=== PATIENT | female | born 2005 | race African-American/Black ===

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

== ENCOUNTER 2024-01-22 13:09 | Emergency (ER) | payer SELFPAY ==
--- OUTSIDE RECORDS SUMMARY | 2024-01-22 13:12 | XMS REPORT | Continuity of Care Document ---
Author Name Unknown Address [address] [place] [address] [facility] thconnect Address [address] [place] [address] Care Team Providers Care Creative Writing English Professor Name Role Phone Unavailable Unavailable Unavailable Encounters Start Date/Time End Date/Time Encounter Type Admission Type Attending [facility] Facility Care Department Encounter ID Source 2023-01-12 16:24:44 2023-01-12 16:24:44 Outpatient [facility] [id number] Emerson Marc 2022-12-16 15:50:12 2022-12-16 15:50:12 Outpatient [facility] [id number] Emerson Marc 2022-08-26 11:26:49 2022-08-26 11:26:49 Outpatient [facility] [id number] Emerson Marc 2022-08-23 14:48:02 2022-08-23 14:48:02 Outpatient [facility] [id number] Emerson Marc 2022-08-20 17:51:00 2022-08-20 17:51:00 Outpatient [facility] [id number] Emerson Marc 2022-07-26 16:16:28 2022-07-26 16:16:28 Outpatient [facility] [id number] Emerson Marc Results Test Description Test Time Test Comments Results Result Co mments Source CHLAMYDIA, NAAT, [id number] 17:41:24* Test Item Value Reference Range Interpretation Comme nts CHLAMYDIA, NAAT, URINE (test code = 66793) NEGATIVE NEGATIVE Testing is perfo rmed with [employer] ERICK 6800/8800 systems usingreal-time polymerase chain reaction (PCR) method. A negative result does not exclude low level infection, specimensampling error, or collection error. GONORRHEA, NAAT, [id number] 17:41:24* Test Item Value Reference Range Interpretation Comme nts GONORRHEA, NAAT, URINE (test code = 52121) NEGATIVE NEGATIVE Testing is perfo rmed with [employer] ERICK 6800/8800 systems usingreal-time polymerase chain reaction (PCR) method. A negative result does not exclude low level infection, specimensampling error, or collection error. HERPES SIMPLEX AB, [id number] 14:51:22* Test Item Value Reference Range Interpretation Comme nts HERPES SIMPLEX AB, IgM (test code = 36585) 0.86 INDEX SEE BELOW INTERPRETATION U NITS RANGE ----- ----- NEGATIVE INDEX <=0.89 EQUIVOCAL INDEX 0.90-1.09 POSITIVE INDEX >=1.10 CULTURE, [id number] 09:25:55SPECIMEN NUMBER: [id number] CULTURE, URINE SPECIMEN NUMBER: [id number] SPECIMEN COMMENT: URINE SOURCE: URINE REPORT STATUS: FINAL FINAL REPORT: 12/19/2022 10-50,000 CFU/ML UROGENITAL ALEXANDER PRESENT NO CO MMON PATHOGENS UNLESS OTHERWISE INDICATED, ALL TESTING PERFORMED AT [facility] [address] [place] [address] STERILIZER MACHINE OPERATOR: BEATRICE NI M.D. CLIA NUMBER [id number] [place]. [id number] REFLEX TO T. PALLIDUM - [id number] 06:25:09* Test Item Value Reference Range Interpretation Comme nts RPR (test code = 25548) NON-REACTIVE NON-REACTIVE RPR TITER (test code = 3500) NOT INDIC. TITER NOT INDIC. HERPES SIMPLEX 1/2 AB, IgG [id number] 04:13:55* Test Item Value Reference Range Interpretation Comme nts HERPES SIMPLEX 1 AB, IgG (test code = 89408) 0.032 INDEX SEE BELOW INTERPRETATION U NITS RANGE ----- ----- NON-REACTIVE INDEX <1.000 REACTIVE INDEX >=1.000 HERPES SIMPLEX 2 AB, IgG (test code = 98544) 0.084 INDEX SEE BELOW INTERPRETATION U NITS RANGE ----- ----- NON-REACTIVE INDEX <1.000 REACTIVE INDEX >=1.000 HIV 1/2 4TH GEN, RFLX [id number] 04:13:55* Test Item Value Reference Range Interpretation Comme nts HIV 1/2 4TH GEN, RFLX CONF ( test code = 3514) NON-REACTIVE NON-REACTIVE LIPID [id number] 03:28:16* Test Item Value Reference Range Interpretation [...] SPECIMENS. FOR MOREINFORMATION, SEE CLIENT ANNOUNCEMENT AT [email or web address] /[email or web address] RISK RATIO LDL/HDL (test code = 2238) 2.49 RATIO <3.22 UNLESS OTHERW ISE INDICATED, ALL TESTING PERFORMED AT [facility] [address] [place], [place] [address] STERILIZER MACHINE OPERATOR: BEATRICE NI M.D. CLIA NUMBER [id number] [place]. [id number] CULTURE, [id number] 11:46:45SPECIMEN NUMBER: [id number] CULTURE, THROAT SPECIMEN NUMBER: [id number] SOURCE: THROAT REPORT STATUS:FINAL FINAL REPORT: 08/28/2022 NORMAL RESPIRATORY ALEXANDER [facility] has important pathology staff change s effective 07/21/2022. New pathology staff will provide uninterrupted, excellent patient care and clinical consultation. See URL: [email or web address]. UNLESS OTHERWISE INDICATED, ALL TESTING PERFORMED AT [facility] [address] [place] [address] LABORATORYDIRECTOR: BEATRICE NI M.D. CLIA NUMBER [id number] [place]. [id number] W/AUTO DIFF WITH [id number] 04:30:36* Test Item Value Reference Range Interpretation [...] 0.00-0.10 ABS NUCLEATED RBCS (test code = 74043) 0.00 K/UL 0.00-0.11 [facility] has important pathology staff changes effective 07/21/2022. New pathology staff will provide uninterrupted, excellent patient care and clinical consultation. See URL: [email or web address]. UNLESS OTHERWISE INDICATED, ALL TESTING PERFORMED AT [facility] [address] [place] [address] STERILIZER MACHINE OPERATOR: BEATRICE NI M.D. [place] NUMBER [id number] [facility] [place]. [id number] LIPID [id number] 04:12:50* Test Item Value Reference Range Interpretation [...] SPECIMENS. FOR MOREINFORMATION, SEE CLIENT ANNOUNCEMENT AT [email or web address] /[email or web address] RISK RATIO LDL/HDL (test code = 2238) 2.00 RATIO <3.22 COMPREHENSIVE METABOLIC [id number] 04:12:50* Test Item Value Reference Range Interpretation Comme nts GLUCOSE (test code = 2217) 85 MG/DL 70-99 BUN (test code = 2208) 6 MG/DL 6-20 CREATININE (test code = 2214) 0.83 MG/DL 0.50-1.10 eGFR (2020 CKD-EPI) (test code = 54955) NO CALC ML/MIN/1.73 >60 NOTE: 2020 CKD-EPI [...] (test code = 2218) 11 U/L 5-40 [facility] has impo rtant pathology staff changes effective 07/21/2022. New pathology staff will provide uninterrupted, excellent patient care and clinical consultation. See URL: [email or web address]. UNLESS OTHERWISE INDICATED, ALL TESTING PERFORMED AT [facility] [address] [place] [address] STERILIZER MACHINE OPERATOR: BEATRICE NI M.D. CLIA NUMBER [id number] [facility] [place]. [id number] HEMOGLOBIN [id number] 03:51:24* Test Item Value Reference Range Interpretation Comme nts HEMOGLOBIN A1c (test code = 67901) 5.5 % 4.2-5.6 CBC W/AUTO DIFF WITH [id number] 03:12:24* Test Item Value Reference Range Interpretation [...] = 1065) 0.0 /100 WBC'S See_Comment [Automated [employer]] The system which generated this result [...] 0.00-0.10 ABS NUCLEATED RBCS (test code = 08086) 0.00 K/UL 0.00-0.11
--- NOTE | 2024-01-22 13:54 | RAD REPORT ---
EXAM DESCRIPTION: RAD - Ankle Left 3 View - 01/22/2024 1:41 pm CLINICAL HISTORY: PAIN COMPARISON: No comparisons FINDINGS: No acute fracture or dislocation is seen. Small calcaneal spurs.
--- NOTE | 2024-01-22 13:59 | ER ---
Nurse's Notes [facility] Name: Marley Tatum Age: 18 yrs Sex: Female : 2005 Arrival Date: 01/22/2024 Time: 13:09 Bed 12 Private MD: Diagnosis: Sprain of unspecified ligament of left ankle, initial encounter Presentation: 01/21 13:25 Chief complaint: Patient states: she was working out last week, when she hurt her left ap3 ankle. patient complains of continued pain that is not improving. patient states her pain is currently an 8/10 on the pain scale at this time. Coronavirus screen: At this time, the client does not indicate any symptoms associated with coronavirus-19. Ebola Screen: No symptoms or risks identified at this time. Initial Sepsis Screen: Does the patient meet any 2 criteria? No. Patient's initial sepsis screen is negative. Does the patient have a suspected source of infection? No. Patient's initial sepsis screen is negative. Risk Assessment: Do you want to hurt yourself or someone else? Patient reports no desire to harm self or others. Onset of symptoms was January 15, 2024. 13:25 Method Of Arrival: Ambulatory ap3 13:25 Acuity: REINA 4 ap3 Triage Assessment: 13:28 General: Appears in no apparent distress. Behavior is calm, cooperative, appropriate ap3 for age. Pain: Complains of pain in dorsum of left foot Pain currently is 8 out of 10 on a pain scale. Neuro: Level of Consciousness is awake, alert, obeys commands, Oriented to person, place, time, situation, Appropriate for age. Cardiovascular: Patient's skin is warm and dry. Respiratory: Airway is patent Respiratory effort is even, unlabored, Respiratory pattern is regular, symmetrical. 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 - Infectious Disease History:: Denies. - Social history:: Smoking status: Patient denies any tobacco usage or history of. Screenin:29 [facility] ED Fall Risk Assessment (Adult) History of falling in the last 3 months, ap3 including since admission No falls in past 3 months (0 pts) Confusion or Disorientation No (0 pts) Intoxicated or Sedated No (0 pts) Impaired Gait No (0 pts) Mobility Assist Device Used No (0 pt) Altered Elimination No (0 pt) Score/Fall Risk Level 0 - 2 = Low Risk Oriented to surroundings, Maintained a safe environment, Educated pt \T\ family on fall prevention, incl call for assistance when getting out of bed, Assessed \T\ reinforced patient's understanding of fall precautions, Hourly rounding (assess needs \T\ fall precautionary measures) done, Used ambulatory aids as needed (educated on \T\ assisted with), Used gait belt as appropriate. Abuse screen: Denies threats or abuse. Nutritional screening: No deficits noted. Tuberculosis screening: No symptoms or risk factors identified. Assessment: 13:43 General: Appears in no apparent distress. Behavior is calm, cooperative. Pain: tl4 Complains of pain in left foot. Neuro: Level of Consciousness is awake, alert, obeys commands, Oriented to person, place, time, situation, Moves all extremities. Full function. Cardiovascular: Capillary refill < 3 seconds Patient's skin is warm and dry. Respiratory: Airway is patent Respiratory effort is even, unlabored, Respiratory pattern is regular, symmetrical, Breath sounds are clear bilaterally. GI: No signs and/or symptoms were reported involving the gastrointestinal system. : No signs and/or symptoms were reported regarding the genitourinary system. EENT: No signs and/or symptoms were reported regarding the EENT system. Derm: No signs and/or symptoms reported regarding the dermatologic system. Musculoskeletal: Reports pain in left foot. Vital Signs: 13:25 BP 136 / 95; Pulse 77; Resp 17; Temp 98.1; Pulse Ox 100% ; Weight 108.86 kg; Height 5 ap3 ft. 6 in. ; Pain 8/10; 13:44 BP 132 / 74; Pulse 60; Resp 18; Pulse Ox 100% on R/A; tl4 13:25 Body Mass Index 38.74 (108.86 kg, 167.64 cm) - Percentile 98.2 % ap3 13:25 Pain Scale: Adult ap3 ED Course: 13:12 Patient arrived in ED. im 13:17 Yani Vasquez PA-C is PHCP. sb4 13:17 Luma Albarran MD is Attending Physician. sb4 13:27 Triage completed. ap3 13:29 Arm band placed on right wrist. ap3 13:29 Patient has correct armband on for positive identification. Call light in reach. Side ap3 rails up X 1. Pulse ox on. NIBP on. 13:43 Ankle Left 3 View XRAY In Process Unspecified. EDMS 13:43 Foot Left 3 View In Process Unspecified. EDMS 13:43 Jhon Wright, RN is Primary Nurse. tl4 13:44 Provided Education on: call davis, ed process. tl4 13:44 No provider procedures requiring assistance completed. Patient did not have IV access tl4 during this emergency room visit. 14:06 Air stirrup applied to left ankle. tl4 Administered Medications: No medications were administered Medication: 13:44 VIS not applicable for this client. tl4 Outcome: 13:58 Discharge ordered by MD. sb4 14:06 Discharged to home ambulatory, tl4 14:06 Condition: stable 14:06 Discharge instructions given to patient, Instructed on discharge instructions, follow up and referral plans. medication usage, splint care Demonstrated understanding of instructions, follow-up care, medications, splint care, Prescriptions given X 1, 14:07 Patient left the ED. tl4 Signatures: Dispatcher [employer] Elisha Pope, RN RN [email or web address] Yani Vasquez PA-C PA-C sb4 Skye Randhawa Toni, RN RN tl4
--- NOTE | 2024-01-22 13:59 | EDPHYS ---
Physician Documentation [facility] Name: Marley Tatum Age: 18 yrs Sex: Female : 2005 Arrival Date: 01/22/2024 Time: 13:09 Bed 12 Private MD: ED Physician Luma Albarran HPI: 01/21 13:29 This 18 yrs old Black Female presents to ER via Ambulatory with complaints of Foot sb4 Pain, Ankle pain. 13:29 The patient presents with an injury, pain, that is acute. The complaints affect the sb4 left lateral ankle and dorsum of left foot. Context: resulted from an unknown cause, the patient can fully bear weight, the patient is able to ambulate, Problem is a result from a previous injury: No. Onset: The symptoms/episode began/occurred 1 week(s) ago. Modifying factors: The symptoms are alleviated by elevating leg, remaining still, the symptoms are aggravated by movement, weight bearing. Associated signs and symptoms: The patient has no apparent associated signs or symptoms. Treatment prior to arrival includes: elevation of the extremity, over the counter medications, Tylenol. The patient has not experienced similar symptoms in the past. 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 - Infectious Disease History:: Denies. - Social history:: Smoking status: Patient denies any tobacco usage or history of. ROS: 13:29 Constitutional: Negative for fever, chills, and weight loss, sb4 13:29 MS/extremity: Positive for injury or acute deformity, pain, of the left lateral ankle and left foot and dorsum of left foot, 13:29 All other systems are negative, Exam: 13:29 Constitutional: This is a well developed, well nourished patient who is awake, alert, sb4 and in no acute distress. Head/Face: Normocephalic, atraumatic. Eyes: Extra-ocular motions intact. Periorbital areas with no swelling, redness, or edema. ENT: Mucous membranes moist. 13:29 Skin: Warm, dry with normal turgor. Normal color with no rashes, no lesions, and no evidence of cellulitis. 13:29 Musculoskeletal/extremity: Joints: the left ankle displays painful range of motion, swelling, Vital Signs: 13:25 BP 136 / 95; Pulse 77; Resp 17; Temp 98.1; Pulse Ox 100% ; Weight 108.86 kg; Height 5 ap3 ft. 6 in. ; Pain 8/10; 13:44 BP 132 / 74; Pulse 60; Resp 18; Pulse Ox 100% on R/A; tl4 13:25 Body Mass Index 38.74 (108.86 kg, 167.64 cm) - Percentile 98.2 % ap3 13:25 Pain Scale: Adult ap3 MDM: 13:19 Patient medically screened. sb4 13:58 Data reviewed: vital signs, nurses notes, radiologic studies, and as a result, I will sb4 discharge patient. Counseling: I had a detailed discussion with the patient and/or guardian regarding the historical points, exam findings, and any diagnostic results supporting the discharge/admit diagnosis, radiology results, to return to the emergency department if symptoms worsen or persist or if there are any questions or concerns that arise at home. 01/21 13:28 Order name: Ankle Left 3 View XRAY; Complete Time: 13:57 sb4 01/21 13:39 Order name: Foot Left 3 View; Complete Time: 14:00 EDMS 01/21 13:58 Order name: Ankle Splint: Aircast; Complete Time: 14:06 sb4 Administered Medications: No medications were administered Disposition Summary: 01/22/24 13:58 Discharge Ordered Notes: Location: Home sb4 Problem: an ongoing problem sb4 Symptoms: are unchanged sb4 Condition: Stable sb4 Diagnosis - Sprain of unspecified ligament of left ankle, initial encounter sb4 Followup: sb4 - With: Private Physician - When: As needed - Reason: Recheck today's complaints, Re-evaluation by your physician Discharge Instructions: - Discharge Summary Sheet sb4 - Ankle Sprain, [id number] sb4 - Ankle Sprain, Phase I Rehab sb4 Forms: - Patient Portal Instructions sb4 - Leadership Thank You Letter sb4 Prescriptions: - meloxicam 7.5 mg Oral tablet - take 1 tablet ORAL route every morning; 14 tablet; Refills: 0, Product sb4 Selection Permitted Signatures: Dispatcher [employer] Elisha Pope RN RN ap3 Yani Vasquez, MANUEL PAKadeem sb4 Jhon Wright RN RN tl4
--- NOTE | 2024-01-22 13:59 | RAD REPORT ---
EXAM DESCRIPTION: RAD - Foot Left 3 View - 01/22/2024 1:41 pm CLINICAL HISTORY: INJURY COMPARISON: No comparisons FINDINGS: Soft tissue swelling is seen anteriorly. No acute fracture or dislocation seen. Tiny calca oc spur.
[2024-01-22 14:20] VITALS: BP 132/74; TEMP 98.1; O2SAT 100
== END 2024-01-22 14:07 | disposition home or self-care (01) ==
LOC: ER 13:09
DX: S93.402A Sprain of unspecified ligament of left ankle, initial encounter (principal)
CPT/HCPCS: 99283